=== PATIENT | female | born 1950 | race Caucasian/White ===

== ENCOUNTER 2017-04-13 13:38 | Day surgery (SDC) | payer MEDICARE, OTHER ==
--- NOTE | ~2017-04-13 | OP ---
Record Of Operation [facility] [address] [place]. [address] NAME: SELIN TURNER : 50 [place] [facility] [facility] [place] [id number] AGE: 66 ADM/REG DATE : 04/13/17 MR#: [id number] REPORT SERV DATE: 04/13/17 DICTATED BY: RUDY MORA DATE: 04/13/17 REPORT STATUS : Draft TRANSCRIBED BY: MODL DATE: 04/13/17 DATE OF PROCEDURE: 04/13/2017 PREOPERATIVE DIAGNOSES: 1. Right tennis elbow. 2. 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 PROCEDURES: Right tennis elbow: 1. Excision of mucoid degenerative tissue with partial lateral epicondylectomy and reattachment of common extensor to lateral epicondyle. 2. Left index finger radial MCP joint steroid injection using 20 mg of Depo-Medrol. SURGEON: Rudy Mora M.D. LABOR MEDIATOR: Sandra Houston. ANESTHESIA: General. ESTIMATED BLOOD LOSS: Less than 1 mL. COMPLICATIONS: None. DISPOSITION: The patient tolerated the procedure well and was brought to recovery room in stable condition. PROCEDURE NOTE: The patient was brought to the operating room and placed in a supine position. After general anesthesia was administered, the right upper extremity distal to the axilla was prepped and draped in the usual sterile manner. A surgical timeout was performed and all were in agreement. A sterile pneumatic tourniquet was placed on the right proximal arm and the right upper extremity distal to the tourniquet was exsanguinated and tourniquet was inflated. Tennis elbow release was carried out by taking a 15-blade scalpel and making a 4-5 cm longitudinal incision starting just slightly posterior and superior to the lateral epicondyle. The incision was directed distally and was directly overlying the area of maximal tenderness as pointed out by the patient in the preop holding area. After the skin was incised, blunt and sharp dissection was carried out, and the common extensor tendons were identified. At the level of the lateral epicondyle, the incision was made into the common extensor tendon and was inserted partially into the thickness of the tendon and directed distally. More proximally, along the epicondyle the common muscles were released and a rongeur was used to remove the mucoid degenerative tissue. Afterwards, a rongeur was used to remove portionally superior aspect of the lateral epicondyle making sure that the lateral ulnar collateral ligament was intact. The elbow was put through range of motion and the lateral ulnar collateral ligament was tested and there was no evidence of instability. After irrigating the wound, the common extensor tendon was sewn back to the lateral epicondyle through two separate drill holes made into the lateral epicondyle. Securing the Record Of Operation [facility] [address] [place] [address] NAME: SELIN TURNER : 50 [place] [facility] [facility] [place] [id number] AGE: 66 ADM/REG DATE : 04/13/17 MR#: [id number] REPORT SERV DATE: 04/13/17 DICTATED BY: RUDY MORA DATE: 04/13/17 REPORT STATUS : Draft TRANSCRIBED BY: BRANDO DATE: 04/13/17 tendon back to the bone was carried out with Vicryl suture and afterwards the rest of the tendon was sewn side to side, and good repair was noted. The wound was irrigated and skin was closed with deep and running Monocryl suture. Steri-Strips, sterile dressing, was later applied and posterior splint was applied after the tourniquet was released and the patient's arm was placed in a sling. The left index finger, radial MCP joint injection was carried out by prepping the area and then injecting the 20 mg of Depo-Medrol into the region. A Band-Aid was applied. Afterwards, the patient was taken out of general anesthesia and brought to recovery room in stable condition. JIMMY/BRANDO Rudy Mora M.D. / [id number] CC: Rissa Carter M.D.
[~2017-04-13 13:38] MED LIST: ACCUNE1 INH; ACET500CAP PO; ALEVE220 MG PO; AMOXIL875 PO; ANOROELLIPTA INH; ASAB PO; ATROVENT HFA17 MCG INH; BEN25 PO; DALIRESP PO; ESTRACE0.5 MG PO; ESTRACE1 MG PO; ESTRADIOL1 MG PO; FLEX PO; FLONASE NAS; FLOVENT DISK250 MCG INH; FLOVENT220 INH; GAMMAGARD IV; HALF81 PO; HYZAAR 50/12.51 TAB PO; LIOR10 PO; MICARDIS HCT PO; MOBIC7.5 PO; MUCINEX D1 TAB OR; MUCINEX600 MG PO; NAP500 PO; NEUR300 PO; NEUR400 PO; NEXIUM40 PO; OXYGEN; PRAVACHOL40 MG PO; REG PO; SAVELLA50 MG PO; SINGULAIR1 PO; SYMBICORT 160/41 INH INH; TUDORZA PRESS400 MCG INH; VENTOLIN HFA INH; Z-PAK PO; ZYRTEC ALLGY10 MG PO; [UNRECOGNIZED DRUG - OTHER] PO
[2017-04-13 14:38] LABS: HEMATOCRIT 36.9 % (36.0-48.0); HEMOGLOBIN 12.7 g/dL (12.0-16.0)
[2017-04-13 14:50] LABS: CALCIUM, SERUM 9.2 MG/DL (8.5-10.4); CHLORIDE, SERUM 106 MMOL/L (96-112); CO2 (CARBON DIOXIDE) 31 MMOL/L (24-34); CREATININE 0.68 MG/DL (0.55-1.02); GFR AFRICAN AMERICAN 106 ML/MIN (>=60); GFR NON AFRICAN AMERICAN 91 ML/MIN (>=60); GLUCOSE, SERUM 80 MG/DL (60-99); POTASSIUM, SERUM 3.3 MMOL/L (3.5-5.3); SODIUM, SERUM 141 MMOL/L (135-148)
[2017-04-13 14:52] LABS: BUN (BLOOD UREA NITROGEN) 9 MG/DL (6-23)
[2017-05-16] MEDS ORDERED: ZITHROMAX500 MG PO (14:53)
[2017-05-16] MEDS ORDERED: BEN25 PO (14:56)
[2017-05-16] MEDS ORDERED: COLON CLEANSE PO (14:56)
== END 2017-04-13 21:08 | disposition home or self-care (01) ==
LOC: SDC 13:38
PROVIDERS: Orthopaedic Surgery Hand Surgery
PROC: 0PBF0ZZ Excision of Right Humeral Shaft, Open Approach (ICD-10-PCS; principal; 2017-04-13 15:15)
PROC: 3E0U33Z Introduction of Anti-inflammatory into Joints, Percutaneous Approach (ICD-10-PCS; 2017-04-13 15:15)
DX: M77.11 Lateral epicondylitis, right elbow (principal); M25.542 Pain in joints of left hand; J44.9 Chronic obstructive pulmonary disease, unspecified; J45.909 Unspecified asthma, uncomplicated; J40 Bronchitis, not specified as acute or chronic; I10 Essential (primary) hypertension; G89.29 Other chronic pain; M79.7 Fibromyalgia; Z88.1 Allergy status to other antibiotic agents; F17.210 Nicotine dependence, cigarettes, uncomplicated; Z96.659 Presence of unspecified artificial knee joint; Z90.49 Acquired absence of other specified parts of digestive tract; Z90.710 Acquired absence of both cervix and uterus; Z98.890 Other specified postprocedural states; Z79.899 Other long term (current) drug therapy
CPT/HCPCS: 80048; 85014; 85018; 88305; 93005; A9270-GY; J0690; J1030; J2270; J2405; J3010